=== PATIENT | male | born 1935 | race Two or more races ===

== ENCOUNTER 2023-08-14 15:22 | Emergency (ER) | payer MEDICARE, OTHER ==
[~2023-08-14] VITALS: Ht 172.7 cm; Wt 76.7 kg
[2023-08-14 15:35] VITALS: TEMP 98.6
[2023-08-14] MEDS ORDERED: TDAP [DIPH/PERTUSSIS/TET] 0.5 ML VIAL IM ONE (15:37)
[2023-08-14] MEDS: TDAP [DIPH/PERTUSSIS/TET] 0.5 ML VIAL IM ONE (15:44)
[2023-08-14] MEDS ORDERED: ESCI20TA PO (16:58)
[2023-08-14] MEDS ORDERED: DIVA125C5 PO (16:58)
[2023-08-14] MEDS ORDERED: MELA3TAB41 PO (16:58)
[2023-08-14] MEDS ORDERED: CLON0.5T4 PO (16:58)
[2023-08-14] MEDS ORDERED: MULT-213 PO (16:58)
[2023-08-14] MEDS ORDERED: RISP0.5T65 PO (16:58)
[2023-08-14] MEDS ORDERED: MEMA1CAP3 PO (16:58)
[2023-08-14] MEDS ORDERED: TIMO5DRO18 LEFTEYE (16:58)
[2023-08-14] MEDS ORDERED: GEMTESA PO (16:58)
[2023-08-14] MEDS ORDERED: LATA2.5D15 LEFTEYE (16:58)
[2023-08-14] MEDS ORDERED: RISP1TAB97 PO (16:58)
[2023-08-14] MEDS ORDERED: CHOL200059 PO (16:58)
[2023-08-14] MEDS ORDERED: TAMS-12 PO (16:58)
[2023-08-14 21:24] VITALS: BP 151/70; O2SAT 96
== END 2023-08-14 21:24 ==
LOC: ER 15:27
DX: S00.83XA Contusion of other part of head, initial encounter (principal); F03.90 Unspecified dementia, unspecified severity, without behavioral disturbance, psychotic disturbance, mood disturbance, and anxiety; I10 Essential (primary) hypertension; Z79.899 Other long term (current) drug therapy; W18.39XA Other fall on same level, initial encounter; Y93.89 Activity, other specified; Y92.89 Other specified places as the place of occurrence of the external cause; Y99.8 Other external cause status
CPT/HCPCS: 70450-TC; 72125-TC; 90715

== ENCOUNTER 2023-09-08 21:12 | Inpatient (IN) | payer MEDICARE, OTHER ==
[~2023-09-08] VITALS: Ht 172.7 cm; Wt 76.7 kg
[~2023-09-08 21:12] MED LIST: CHOL200059 PO; CLON0.5T4 PO; DIVA125C5 PO; ESCI20TA PO; GEMTESA PO; LATA2.5D15 LEFTEYE; MELA3TAB41 PO; MEMA1CAP3 PO; MULT-213 PO; RISP0.5T65 PO; RISP1TAB97 PO; TAMS-12 PO; TIMO5DRO18 LEFTEYE
[2023-09-08 21:53] LABS: BASOPHILS # (AUTO) 0.1 K/uL (0.0-0.2); BASOPHILS % (AUTO) 0.6 % (0.0-2.0); EOSINOPHILS # (AUTO) 0.1 K/uL (0.0-0.7); EOSINOPHILS % (AUTO) 0.7 % (0.0-6.0); HEMATOCRIT 44 % (39-51); HEMOGLOBIN 14.3 g/dL (13.5-17.5); LYMPHOCYTES # (AUTO) 1.3 K/uL (0.8-4.8); LYMPHOCYTES % (AUTO) 12.5 % (20.0-44.0); MEAN CORPUSCULAR HEMOGLOBIN 29 PG (26.0-33.0); MEAN CORPUSCULAR HGB CONC 33 g/dl (31.0-36.0); MEAN CORPUSCULAR VOLUME 88 fL (80-96); MONOCYTES # (AUTO) 0.5 K/uL (0.1-1.30); MONOCYTES % (AUTO) 5.2 % (2.0-12.0); NEUTROPHILS # (AUTO) 8.1 K/uL (1.8-8.9); PLATELET COUNT (AUTO) 297 K/uL (150-450); RED BLOOD CELL COUNT(AUTO) 4.97 MIL/uL (4.5-6.0); RED CELL DISTRIBUTION WIDTH 13.4 % (11.5-15.0)
[2023-09-08 21:59] LABS: CALCIUM, SERUM 9.8 mg/dL (8.5-10.1); CARBON DIOXIDE 28 mmol/L (21-32); CHLORIDE 100 mmol/L (98-107); CREATININE 1.4 mg/dL (0.6-1.3); GLUCOSE 246 mg/dL (74-106); SODIUM SERUM 137 mmol/L (136-145); UREA NITROGEN, BLOOD 50 mg/dL (7-18)
[2023-09-08 22:00] LABS: INR 0.95 (0.91-1.10); PARTIAL THROMBOPLASTIN TIME 32.4 SEC (24.3-34.3); PROTHROMBIN TIME 9.8 SECS (9.2-11.1)
[2023-09-08 22:12] LABS: ALANINE AMINOTRANSFERASE 103 U/L (12-78); ALBUMIN 2.8 g/dL (3.4-5.0); ALKALINE PHOSPHATASE 120 U/L (46-116); ASPARTATE AMINOTRANSFERASE 55 U/L (15-37); BILIRUBIN,DIRECT 0.2 mg/dL (0.0-0.2); BILIRUBIN,TOTAL 0.4 mg/dL (0.2-1.0); NT-PRO BNP 282 pg/mL (0-125); TOTAL PROTEIN, SERUM 8.6 g/dL (6.4-8.2)
[2023-09-08] MEDS: IV NS 0.9% 1,000 ML IV ONE (23:04)
[2023-09-09] VITALS (8 sets, daily range): BP systolic 113–146; BP diastolic 56–72; TEMP 97.5–98.6; O2SAT 93–99
[2023-09-09 00:45] LABS: LACTIC ACID 2.3 mmol/L (0.4-2.0)
[2023-09-09 01:36] LABS: APPEARANCE,URINE CLEAR (CLEAR); BILIRUBIN,URINE NEGATIVE (NEGATIVE); BLOOD, URINE NEGATIVE Ery/uL (NEGATIVE); COLOR,URINE YELLOW (YELLOW); KETONES,URINE NEGATIVE (NEGATIVE); LEUKOCYTE ESTERASE ,URINE NEGATIVE (NEGATIVE); NITRITE, URINE NEGATIVE (NEGATIVE); PH,URINE 5.5 (5.0-8.0); PROTEIN,URINE TRACE mg/dl (NEGATIVE); UGLUCOSE TRACE mg/dL (NEGATIVE)
[2023-09-09 01:37] LABS: ADD URINE CULTURE NO; BACTERIA,URINE Rare /HPF (None Seen); RBC,URINE 0-2 /HPF (0-2); SQUAMOUS EPITHELIAL CELL,UR Few /HPF (None Seen); WBC,URINE 0-2 /HPF (0-3)
[2023-09-09] MEDS ORDERED: ALBUTEROL FS 2.5 MG/3 ML VIAL.NEB NEB PRN (03:00)
[2023-09-09] MEDS ORDERED: MAG HYDROX/AL HYDROX/SIMETH 30 ML UDC PO PRN (03:00)
[2023-09-09] MEDS ORDERED: clonazePAM 0.5 MG TABLET PO PRN (03:00)
[2023-09-09] MEDS ORDERED: ACETAMINOPHEN 325 MG TABLET PO PRN (03:00)
[2023-09-09] MEDS ORDERED: Z GUARD REMEDY 4 OZ OINT TP PRN (03:00)
[2023-09-09] MEDS ORDERED: IPRATROPIUM NEB FS 0.5 MG/2.5 ML AMPUL.NEB NEB PRN (03:00)
[2023-09-09] MEDS ORDERED: ONDANSETRON HCL/PF 4 MG/2 ML VIAL IVP PRN (03:00)
[2023-09-09] MEDS ORDERED: ZOLPIDEM TARTRATE 5 MG TABLET PO PRN (03:00)
[2023-09-09] MEDS: ENOXAPARIN SODIUM 40 MG/0.4 ML DISP.SYRIN SQ SCH (03:30)
[2023-09-09] MEDS: IV NS 0.9% 1,000 ML IV PRN (03:34)
[2023-09-09] MEDS: PANTOPRAZOLE 40 MG TABLET.DR PO SCH (07:30)
[2023-09-09 07:35] LABS: BASOPHILS % (AUTO) 0.4 % (0.0-2.0); EOSINOPHILS # (AUTO) 0.1 K/uL (0.0-0.7); HEMATOCRIT 40 % (39-51); LYMPHOCYTES # (AUTO) 2.1 K/uL (0.8-4.8); LYMPHOCYTES % (AUTO) 21.3 % (20.0-44.0); MEAN CORPUSCULAR HEMOGLOBIN 29 PG (26.0-33.0); MEAN CORPUSCULAR HGB CONC 33 g/dl (31.0-36.0); MEAN CORPUSCULAR VOLUME 90 fL (80-96); MONOCYTES # (AUTO) 0.6 K/uL (0.1-1.30); MONOCYTES % (AUTO) 6.3 % (2.0-12.0); PLATELET COUNT (AUTO) 258 K/uL (150-450); RED BLOOD CELL COUNT(AUTO) 4.41 MIL/uL (4.5-6.0); RED CELL DISTRIBUTION WIDTH 14.1 % (11.5-15.0); WHITE BLOOD COUNT (AUTO) 9.9 K/uL (4.3-11.0)
[2023-09-09] MEDS ORDERED: Medication Not On Formulary EA (Memantine HCl/Donepezil HCl (Namzaric 28 mg-10 mg Capsul PO SCH (09:00)
[2023-09-09] MEDS: risperiDONE 0.25 MG TABLET PO SCH (09:00)
[2023-09-09] MEDS: TAMSULOSIN 0.4 MG CAP.SR.24H PO SCH (09:00)
[2023-09-09] MEDS ORDERED: Medication Not On Formulary EA ([Gemtesa] 75 MG) PO SCH (09:00)
[2023-09-09] MEDS: CHOLECALCIFEROL 1,000 UNIT TABLET (VIT D3) PO SCH (09:00)
[2023-09-09] MEDS: DIVALPROEX SODIUM 125 MG CAP.SPRINK PO SCH (09:00)
[2023-09-09] MEDS: MULTIVIT W/MINERALS 1 TAB TABLET PO SCH (09:00)
[2023-09-09] MEDS: TIMOLOL 0.5% SOLN OPHTH 5 ML BOTTLE LEFTEYE SCH (09:05)
[2023-09-09 10:28] LABS: ALANINE AMINOTRANSFERASE 74 U/L (12-78); ALBUMIN 2.1 g/dL (3.4-5.0); ALKALINE PHOSPHATASE 102 U/L (46-116); ASPARTATE AMINOTRANSFERASE 40 U/L (15-37); BILIRUBIN,DIRECT 0.1 mg/dL (0.0-0.2); BILIRUBIN,TOTAL 0.4 mg/dL (0.2-1.0); CALCIUM, SERUM 9.4 mg/dL (8.5-10.1); CARBON DIOXIDE 21 mmol/L (21-32); CHLORIDE 106 mmol/L (98-107); GLUCOSE 155 mg/dL (74-106); MAGNESIUM 2.2 mg/dL (1.8-2.4); PHOSPHORUS 2.4 mg/dL (2.5-4.9); POTASSIUM 4.3 mmol/L (3.5-5.1); SODIUM SERUM 141 mmol/L (136-145); TOTAL PROTEIN, SERUM 7.1 g/dL (6.4-8.2); UREA NITROGEN, BLOOD 41 mg/dL (7-18)
[2023-09-09] MEDS: methylPREDNISolone SOD SUCC 40 MG/ML VIAL IV SCH (10:57)
[2023-09-09] MEDS: CEFEPIME 2 GM in IV D5W 100 ML IV SCH (11:07)
[2023-09-09] MEDS: ASPIRIN EC 81 MG TABLET.DR PO SCH (12:00)
[2023-09-09] MEDS: MEMANTINE HCL 5 MG TABLET PO SCH (13:00)
[2023-09-09] MEDS: DONEPEZIL 5 MG TABLET PO SCH (13:00)
[2023-09-09] MEDS: Sodium Phosphate 15 MMOL in IV NS 0.9% 245 ML IV ONE (15:20)
[2023-09-09] MEDS ORDERED: K PHOS NEUTRAL 250 MG TABLET PO ONE (15:30)
[2023-09-09] MEDS: ESCITALOPRAM OXALATE (10 MG) 10 MG TABLET PO SCH (18:00)
[2023-09-09] MEDS: IPRATROPIUM NEB FS 0.5 MG/2.5 ML AMPUL.NEB NEB SCH (20:28)
[2023-09-09] MEDS: ALBUTEROL FS 2.5 MG/3 ML VIAL.NEB NEB SCH (20:28)
[2023-09-09] MEDS: LATANOPROST EYE DROP 0.005% 2.5 ML BOTTLE LEFTEYE SCH (21:02)
[2023-09-09] MEDS: risperiDONE 1 MG TABLET PO SCH (21:03)
[2023-09-09] MEDS ORDERED: MELATONIN 3 MG TABLET PO SCH (22:00)
[2023-09-10] VITALS (11 sets, daily range): BP systolic 124–127; BP diastolic 62–113; TEMP 97.5; O2SAT 92–100
[2023-09-10 07:36] LABS: BASOPHILS % (AUTO) 0.2 % (0.0-2.0); EOSINOPHILS % (AUTO) 0.1 % (0.0-6.0); HEMATOCRIT 38 % (39-51); HEMOGLOBIN 12.4 g/dL (13.5-17.5); LYMPHOCYTES # (AUTO) 0.7 K/uL (0.8-4.8); LYMPHOCYTES % (AUTO) 11.7 % (20.0-44.0); MEAN CORPUSCULAR HEMOGLOBIN 29 PG (26.0-33.0); MEAN CORPUSCULAR HGB CONC 33 g/dl (31.0-36.0); MEAN CORPUSCULAR VOLUME 89 fL (80-96); MONOCYTES # (AUTO) 0.2 K/uL (0.1-1.30); MONOCYTES % (AUTO) 2.6 % (2.0-12.0); NEUTROPHILS % (AUTO) 85.4 % (43.0-81.0); PLATELET COUNT (AUTO) 245 K/uL (150-450); RED BLOOD CELL COUNT(AUTO) 4.27 MIL/uL (4.5-6.0); RED CELL DISTRIBUTION WIDTH 13.3 % (11.5-15.0); WHITE BLOOD COUNT (AUTO) 5.9 K/uL (4.3-11.0)
[2023-09-10 07:45] LABS: ALANINE AMINOTRANSFERASE 49 U/L (12-78); ALKALINE PHOSPHATASE 93 U/L (46-116); ASPARTATE AMINOTRANSFERASE 29 U/L (15-37); BILIRUBIN,TOTAL 0.5 mg/dL (0.2-1.0); CALCIUM, SERUM 9.5 mg/dL (8.5-10.1); CARBON DIOXIDE 22 mmol/L (21-32); CHLORIDE 108 mmol/L (98-107); CREATININE 0.9 mg/dL (0.6-1.3); GLUCOSE 287 mg/dL (74-106); MAGNESIUM 2.4 mg/dL (1.8-2.4); PHOSPHORUS 2.4 mg/dL (2.5-4.9); POTASSIUM 5.4 mmol/L (3.5-5.1); SODIUM SERUM 140 mmol/L (136-145); TOTAL PROTEIN, SERUM 7.1 g/dL (6.4-8.2); UREA NITROGEN, BLOOD 35 mg/dL (7-18)
[2023-09-10] MEDS: Sodium Phosphate 15 MMOL in IV NS 0.9% 245 ML IV ONE (17:01)
[2023-09-10] MEDS: OLANZAPINE 10 MG VIAL IM ONE (22:16)
[2023-09-11] VITALS (9 sets, daily range): BP systolic 141; BP diastolic 74; TEMP 97.3; O2SAT 93–98
[2023-09-11 07:19] LABS: BASOPHILS % (AUTO) 0.1 % (0.0-2.0); EOSINOPHILS % (AUTO) 0.1 % (0.0-6.0); HEMATOCRIT 40 % (39-51); HEMOGLOBIN 12.9 g/dL (13.5-17.5); LYMPHOCYTES # (AUTO) 1.5 K/uL (0.8-4.8); LYMPHOCYTES % (AUTO) 12.5 % (20.0-44.0); MEAN CORPUSCULAR HEMOGLOBIN 29 PG (26.0-33.0); MEAN CORPUSCULAR HGB CONC 33 g/dl (31.0-36.0); MEAN CORPUSCULAR VOLUME 89 fL (80-96); MONOCYTES # (AUTO) 0.7 K/uL (0.1-1.30); MONOCYTES % (AUTO) 5.8 % (2.0-12.0); NEUTROPHILS # (AUTO) 9.6 K/uL (1.8-8.9); NEUTROPHILS % (AUTO) 81.5 % (43.0-81.0); PLATELET COUNT (AUTO) 262 K/uL (150-450); RED BLOOD CELL COUNT(AUTO) 4.45 MIL/uL (4.5-6.0); RED CELL DISTRIBUTION WIDTH 13.3 % (11.5-15.0); WHITE BLOOD COUNT (AUTO) 11.7 K/uL (4.3-11.0)
[2023-09-11 07:39] LABS: ALANINE AMINOTRANSFERASE 42 U/L (12-78); ALBUMIN 2.2 g/dL (3.4-5.0); ALKALINE PHOSPHATASE 82 U/L (46-116); ASPARTATE AMINOTRANSFERASE 17 U/L (15-37); BILIRUBIN,TOTAL 0.3 mg/dL (0.2-1.0); CALCIUM, SERUM 9.2 mg/dL (8.5-10.1); CARBON DIOXIDE 25 mmol/L (21-32); CHLORIDE 107 mmol/L (98-107); GLUCOSE 177 mg/dL (74-106); MAGNESIUM 2.3 mg/dL (1.8-2.4); PHOSPHORUS 2.1 mg/dL (2.5-4.9); POTASSIUM 3.2 mmol/L (3.5-5.1); SODIUM SERUM 142 mmol/L (136-145); TOTAL PROTEIN, SERUM 6.8 g/dL (6.4-8.2); UREA NITROGEN, BLOOD 33 mg/dL (7-18)
[2023-09-11] MEDS: methylPREDNISolone SOD SUCC 40 MG/ML VIAL IV SCH (08:24)
[2023-09-11] MEDS: POTASSIUM CHLORIDE 20 MEQ POWDER PACKET PO SCH (10:23)
[2023-09-11] MEDS: NEUTRA PHOS 1 POWD.PACKET PO ONE (16:02)
[2023-09-11] MEDS: ENSURE ENLIVE CHOC 237 ML CAN PO SCH (17:21)
[2023-09-12] VITALS (8 sets, daily range): BP systolic 122–131; BP diastolic 49–77; TEMP 97.7–98.1; O2SAT 93–98
[2023-09-12 07:01] LABS: BASOPHILS % (AUTO) 0.1 % (0.0-2.0); HEMATOCRIT 35 % (39-51); LYMPHOCYTES # (AUTO) 1.2 K/uL (0.8-4.8); LYMPHOCYTES % (AUTO) 12.5 % (20.0-44.0); MEAN CORPUSCULAR HEMOGLOBIN 30 PG (26.0-33.0); MEAN CORPUSCULAR HGB CONC 34 g/dl (31.0-36.0); MEAN CORPUSCULAR VOLUME 87 fL (80-96); MONOCYTES # (AUTO) 0.5 K/uL (0.1-1.30); MONOCYTES % (AUTO) 5.4 % (2.0-12.0); NEUTROPHILS # (AUTO) 7.6 K/uL (1.8-8.9); PLATELET COUNT (AUTO) 249 K/uL (150-450); RED BLOOD CELL COUNT(AUTO) 4.03 MIL/uL (4.5-6.0); RED CELL DISTRIBUTION WIDTH 13.3 % (11.5-15.0); WHITE BLOOD COUNT (AUTO) 9.3 K/uL (4.3-11.0)
[2023-09-12 07:05] LABS: ALANINE AMINOTRANSFERASE 30 U/L (12-78); ALBUMIN 1.9 g/dL (3.4-5.0); ALKALINE PHOSPHATASE 74 U/L (46-116); ASPARTATE AMINOTRANSFERASE 7 U/L (15-37); BILIRUBIN,TOTAL 0.3 mg/dL (0.2-1.0); CALCIUM, SERUM 8.9 mg/dL (8.5-10.1); CARBON DIOXIDE 25 mmol/L (21-32); CHLORIDE 108 mmol/L (98-107); CREATININE 0.8 mg/dL (0.6-1.3); GLUCOSE 258 mg/dL (74-106); MAGNESIUM 2.3 mg/dL (1.8-2.4); PHOSPHORUS 1.9 mg/dL (2.5-4.9); POTASSIUM 4.3 mmol/L (3.5-5.1); SODIUM SERUM 142 mmol/L (136-145); TOTAL PROTEIN, SERUM 6.1 g/dL (6.4-8.2); UREA NITROGEN, BLOOD 27 mg/dL (7-18)
[2023-09-12] MEDS: K PHOS NEUTRAL 250 MG TABLET PO ONE (15:37)
[2023-09-13] VITALS (11 sets, daily range): BP systolic 113–134; BP diastolic 57–63; TEMP 98.1–98.2; O2SAT 91–98
[2023-09-13 07:02] LABS: BASOPHILS % (AUTO) 0.4 % (0.0-2.0); EOSINOPHILS # (AUTO) 0.1 K/uL (0.0-0.7); EOSINOPHILS % (AUTO) 0.8 % (0.0-6.0); HEMATOCRIT 36 % (39-51); HEMOGLOBIN 12.2 g/dL (13.5-17.5); LYMPHOCYTES # (AUTO) 2.2 K/uL (0.8-4.8); LYMPHOCYTES % (AUTO) 23.7 % (20.0-44.0); MEAN CORPUSCULAR HEMOGLOBIN 29 PG (26.0-33.0); MEAN CORPUSCULAR HGB CONC 34 g/dl (31.0-36.0); MEAN CORPUSCULAR VOLUME 87 fL (80-96); MONOCYTES # (AUTO) 0.4 K/uL (0.1-1.30); MONOCYTES % (AUTO) 4.8 % (2.0-12.0); NEUTROPHILS # (AUTO) 6.5 K/uL (1.8-8.9); NEUTROPHILS % (AUTO) 70.3 % (43.0-81.0); PLATELET COUNT (AUTO) 236 K/uL (150-450); RED BLOOD CELL COUNT(AUTO) 4.17 MIL/uL (4.5-6.0); RED CELL DISTRIBUTION WIDTH 13.7 % (11.5-15.0); WHITE BLOOD COUNT (AUTO) 9.3 K/uL (4.3-11.0)
[2023-09-13 07:34] LABS: ALANINE AMINOTRANSFERASE 37 U/L (12-78); ALBUMIN 1.9 g/dL (3.4-5.0); ALKALINE PHOSPHATASE 71 U/L (46-116); ASPARTATE AMINOTRANSFERASE 12 U/L (15-37); BILIRUBIN,TOTAL 0.5 mg/dL (0.2-1.0); CALCIUM, SERUM 8.8 mg/dL (8.5-10.1); CARBON DIOXIDE 27 mmol/L (21-32); CHLORIDE 105 mmol/L (98-107); CREATININE 0.9 mg/dL (0.6-1.3); GLUCOSE 176 mg/dL (74-106); PHOSPHORUS 1.9 mg/dL (2.5-4.9); POTASSIUM 3.7 mmol/L (3.5-5.1); SODIUM SERUM 140 mmol/L (136-145); UREA NITROGEN, BLOOD 29 mg/dL (7-18)
[2023-09-13] MEDS: methylPREDNISolone SOD SUCC 40 MG/ML VIAL IV SCH (08:18)
[2023-09-13] MEDS: K PHOS NEUTRAL 250 MG TABLET PO ONE (15:57)
[2023-09-13] MEDS: MAGNESIUM HYDROXIDE 30 ML UDC PO PRN (23:40)
[2023-09-14 01:57] VITALS: O2SAT 96
[2023-09-14 02:12] VITALS: O2SAT 98
[2023-09-14 07:46] VITALS: O2SAT 97
[2023-09-14 08:00] VITALS: BP 117/59; TEMP 99.5; O2SAT 96
[2023-09-14 08:02] VITALS: O2SAT 98
[2023-09-14 08:15] VITALS: O2SAT 94
[2023-09-14] MEDS ORDERED: PRED20TA PO (11:11)
[2023-09-14] MEDS ORDERED: Aspirin Ec PO (11:11)
[2023-09-14] MEDS ORDERED: AMOX600S16 PO (11:11)
[2023-09-14] MEDS ORDERED: DOXY-326 PO (11:11)
[2023-09-15] MEDS ORDERED: predniSONE 20 MG TABLET PO SCH (09:00)
== END 2023-09-14 13:30 | DRG 189 ==
LOC: ER 21:13 → TELE 09-09 02:08 → MED 09-09 13:07
PROVIDERS: ADMIT Nurse Practitioner Family; ATTEND Nurse Practitioner Acute Care
DX: J96.01 Acute respiratory failure with hypoxia (principal); J15.9 Unspecified bacterial pneumonia; E87.20 Acidosis, unspecified; F03.93 Unspecified dementia, unspecified severity, with mood disturbance; E44.0 Moderate protein-calorie malnutrition; N17.9 Acute kidney failure, unspecified; J44.0 Chronic obstructive pulmonary disease with (acute) lower respiratory infection; J20.9 Acute bronchitis, unspecified; E88.09 Other disorders of plasma-protein metabolism, not elsewhere classified; E86.0 Dehydration; N40.0 Benign prostatic hyperplasia without lower urinary tract symptoms; D64.9 Anemia, unspecified; F31.9 Bipolar disorder, unspecified; I10 Essential (primary) hypertension; M89.8X9 Other specified disorders of bone, unspecified site; Z20.822 Contact with and (suspected) exposure to COVID-19; R74.01 Elevation of levels of liver transaminase levels; Z68.25 Body mass index [BMI] 25.0-25.9, adult; E86.9 Volume depletion, unspecified
CPT/HCPCS: 36415; 36600; 70490-TC; 71045-TC; 74230-TC; 76700-TC; 80048-TC; 80053-TC; 80076-TC; 81001; 82803-TC; 83605-TC; 83735-TC; 83880; 84100-TC; 84443-TC; 84484-TC; 85025-TC; 85730-TC; 86140-TC; 87081-TC; 92526; 92611-TC; 94760-TC; 94762-TC; 94799-TC; A4223; A9563; G0378; J0692; J1650; J2919; J3490; J7030; J7050; J7060